=== PATIENT | female | born 1965 | race Caucasian/White ===

== ENCOUNTER 2017-07-28 18:14 | Emergency (ER) | payer BC ==
[2017-07-28 18:34] VITALS: BP 162/63
[2017-07-28] MEDS ORDERED: Sodium Chloride 0.9% 10 ML Syringe FLUSH PRN (19:09)
[2017-07-28] MEDS ORDERED: HYDROmorphone 0.5 MG/0.5 ML Syringe IVPUSH ONE ×2 (19:11→20:34)
[2017-07-28] MEDS ORDERED: diphenhydrAMINE 50 MG/ML SDV IVPUSH ONE (19:11)
[2017-07-28] MEDS ORDERED: Prochlorperazine 10 MG/2 ML SDV IVPUSH ONE (19:11)
[2017-07-28] MEDS ORDERED: Ondansetron 4 MG/2 ML SDV IVPUSH ONE (22:06)
--- NOTE | 2017-07-28 22:41 | EDM.PDOC ---
ED HPI GENERAL MEDICAL PROBLEM - General Chief Complaint: Headache Stated Complaint: PRESURE IN HEAD Time Seen by Provider: 07/28/17 19:00 Source of Information: Reports: Patient, Family History Limitations: Reports: No Limitations - History of Present Illness INITIAL COMMENTS - FREE TEXT/NARRATIVE: The patent presents with a headache. The patient has a generalized headache that started today. It is described as pressure. She has nausea and vomiting with it. She has no numbness or weakness. She has a history of headaches but not for about 10 years. She has a low grade temp of 100.6. She had no temp here. She has no chest pain or shortness of breath. She has no cough, congestion or runny nose. She went to the walk in clinic and she was given an injection but that did not help. Onset: Gradual Duration: Day(s): (1) Location: Reports: Head Quality: Reports: Pressure Improves with: Reports: None Worsens with: Reports: None Associated Symptoms: Reports: Headaches, Nausea/Vomiting Headache Pain Score (Numeric/FACES): 10 - Related Data Allergies Allergy/AdvReac Type Severity Reaction Status Date / Time tetracycline Allergy Dizziness Verified 07/28/17 18:38 Home Meds: Home Meds Acetaminophen/Diphenhydramine [Tylenol Pm Ex-Strength Caplet] 2 tab PO BEDTIME 07/28/17 [History] Aspirin [Ecotrin] 81 mg PO DAILY 07/28/17 [History] Calcium Carbonate/Vitamin D3 [Sm Calcium 600-Vit D3 400 Tab] 1 tab PO DAILY 02/08 [History] Cholecalciferol (Vitamin D3) [Vitamin D3] 1 tab PO DAILY 07/28/17 [History] Furosemide 20 mg PO DAILY 07/28/17 [History] Levothyroxine 75 mcg PO ACBREAKFAST 07/28/17 [History] Levothyroxine 200 mcg PO ACBREAKFAST 07/28/17 [History] Meclizine [Antivert] 25 mg PO Q4H PRN 07/28/17 [History] Metoprolol Succinate 50 mg PO DAILY 07/28/17 [History] Multivitamin [Multivitamins] 1 tab PO DAILY 07/28/17 [History] Pantoprazole [ProTONIX] 40 mg PO DAILY 07/28/17 [History] Past Medical History Cardiovascular History: Reports: Heart Murmur, Hypertension Respiratory History: Reports: Sleep Apnea Other Respiratory History: has c pap at h ome but has not been wearing it for about 6 months Gastrointestinal History: Reports: GERD Musculoskeletal History: Reports: Other (See Below) Other Musculoskeletal History: left ACL and MCL; right knee ACL Neurological History: Reports: Vertigo Endocrine/Metabolic History: Reports: Hypothyroidism - Past Surgical History GI Surgical History: Reports: Colonoscopy Musculoskeletal Surgical History: Reports: Carpal Tunnel Social & Family History - Tobacco Use Smoking Status *Q: Never Smoker - Caffeine Use Caffeine Use: Reports: Coffee - Recreational Drug Use Recreational Drug Use: No ED ROS GENERAL - Review of Systems Review Of Systems: See Below Constitutional: Reports: No Symptoms HEENT: Reports: No Symptoms Respiratory: Reports: No Symptoms Cardiovascular: Reports: No Symptoms Endocrine: Reports: No Symptoms GI/Abdominal: Reports: Nausea, Vomiting. Denies: Abdominal Pain : Reports: No Symptoms Musculoskeletal: Reports: No Symptoms Skin: Reports: No Symptoms Neurological: Reports: Headache - Physical Exam Exam: See Below Exam Limited By: No Limitations General Appearance: Alert, No Apparent Distress Ears: Normal External Exam Nose: Normal Inspection Head Exam: Atraumatic, Normocephalic Neck: Normal Inspection Respiratory/Chest: No Respiratory Distress, Lungs Clear, Normal Breath Sounds Cardiovascular: Regular Rate, Rhythm, No Edema, No Murmur GI/Abdominal: Soft, Non-Tender, No Organomegaly, No Mass Neuro Exam (Abbreviated): Alert, Oriented, No Motor/Sensory Deficits Course - Vital Signs Last Recorded V/S: Last Vital Signs Temp 99.3 F 07/28/17 18:31 Pulse 114 H 07/28/17 18:31 Resp 22 H 07/28/17 18:31 BP 162/63 H 07/28/17 18:31 Pulse Ox 85 L 07/28/17 18:31 - Orders/Labs/Meds Orders: Active Orders 24 hr Category Date Time Status Cardiac Monitoring [RC] . DIRECTED Care 07/28/17 19:09 Active Peripheral IV Care [RC] . DIRECTED Care 07/28/17 19:10 Active Chest 1V Frontal [CR] Stat Exams 07/28/17 19:10 Taken Head wo Cont [CT] Stat Exams 07/28/17 19:10 Taken Sodium Chloride 0.9% [Saline Flush] Med 07/28/17 19:09 Active 10 ml FLUSH ASDIRECTED PRN Peripheral IV Insertion Adult [OM.PC] Stat Oth 07/28/17 19:09 Ordered Medication Orders Sodium Chloride (Saline Flush) 10 ml FLUSH ASDIRECTED PRN PRN Reason: Keep Vein Open Last Admin: 07/28/17 19:34 Dose: 10 ml Labs: Laboratory Tests 07/28/17 07/28/17 07/28/17 Range/Units 19:57 19:57 19:57 WBC 8.72 (3.98-10.04) K/mm3 RBC 4.15 (3.98-5.22) M/mm3 Hgb 11.6 (11.2-15.7) gm/L Hct 36.0 (34.1-44.9) % MCV 86.7 (79.4-94.8) fl MCH 28.0 (25.6-32.2) pg MCHC 32.2 (32.2-35.5) g/dl RDW Std Deviation 46.0 (36.4-46.3) fL Plt Count 268 (182-369) K/mm3 MPV 9.1 L (9.4-12.3) fl Neut % (Auto) 53.9 (34.0-71.1) % Lymph % (Auto) 36.9 (19.3-51.7) % Brantley % (Auto) 8.6 (4.7-12.5) % Eos % (Auto) 0.3 L (0.7-5.8) Baso % (Auto) 0.2 (0.1-1.2) % Neut # (Auto) 4.69 (1.56-6.13) K/mm3 Lymph # (Auto) 3.22 (1.18-3.74) K/mm3 Brantley # (Auto) 0.75 H (0.24-0.36) K/mm3 Eos # (Auto) 0.03 L (0.04-0.36) K/mm3 Baso # (Auto) 0.02 (0.01-0.08) K/mm3 Sodium 139 (136-145) mEq/L Potassium 4.0 (3.5-5.1) mEq/L Chloride 102 (98-107) mEq/L Carbon Dioxide 28 (21-32) mEq/L Anion Gap 13.0 (5-15) BUN 18 (7-18) mg/dL Creatinine 1.0 (0.55-1.02) mg/dL Est Cr Clr Drug Dosing 57.87 mL/min Estimated GFR (MDRD) 58 (>60) mL/min BUN/Creatinine Ratio 18.0 (14-18) Glucose 108 H (74-106) mg/dL Calcium 9.3 (8.5-10.1) mg/dL Total Bilirubin 0.3 (0.2-1.0) mg/dL AST 17 (15-37) U/L ALT 20 (14-59) U/L Alkaline Phosphatase 70 (46-116) U/L C-Reactive Protein < 0.2 (<1.0) mg/dL Total Protein 7.4 (6.4-8.2) g/dl Albumin 3.7 (3.4-5.0) g/dl Globulin 3.7 gm/dL Albumin/Globulin Ratio 1.0 (1-2) TSH 3rd Generation 0.065 L (0.358-3.74) uIU/mL Meds: Medications Generic Name Dose Route Start Last Admin Trade Name Freq PRN Reason Stop Dose Admin Sodium Chloride 10 ml 07/28/17 19:09 07/28/17 19:34 Saline Flush FLUSH 10 ml ASDIRECTED PRN Administration Keep Vein Open Discontinued Medications Generic Name Dose Route Start Last Admin Trade Name Freq PRN Reason Stop Dose Admin Diphenhydramine HCl 50 mg 07/28/17 19:11 07/28/17 19:34 Benadryl IVPUSH 07/28/17 19:12 50 mg ONETIME ONE Administration Hydromorphone HCl 0.5 mg 07/28/17 19:11 07/28/17 19:32 Dilaudid IVPUSH 07/28/17 19:12 0.5 mg ONETIME ONE Administration Hydromorphone HCl 0.5 mg 07/28/17 20:34 07/28/17 20:46 Dilaudid IVPUSH 07/28/17 20:35 0.5 mg ONETIME ONE Administration Ondansetron HCl 4 mg 07/28/17 22:06 07/28/17 22:20 Zofran IVPUSH 07/28/17 22:07 4 mg ONETIME ONE Administration Prochlorperazine Edisylate 10 mg 07/28/17 19:11 07/28/17 19:33 Compazine IVPUSH 07/28/17 19:12 10 mg ONETIME ONE Administration - Re-Assessments/Exams Free Text/Narrative Re-Assessment/Exam: 07/28/17 22:43 I ordered an IV saline lock, compazine 10mg IV, benadryl 50mg IV and dilaudid. The CT of her head shows no evidence for acute transcortical infarct, acute hemorrhage or mass effect. Bilateral exophthalmos accompanied by enlargement of the extraocular muscles. Correlate for thyroid opthalmopathy. The patient does have hypothroidism after her thyroid was removed. She was on 300mcg and now 275mcg. Her TSH was 07/28/17 22:46 Her CBC and CMP look good. Her CRP was negative. Her TSH was low at 0.065. She is scheduled to see an safety consultant toward the end of July. I will reduce her thyroxine to 200mcg. Departure - Departure Time of Disposition: 22:50 Disposition: Home, Self-Care 01 Condition: Good Clinical Impression: Hyperthyroidism, Exophthalmos Headache Qualifiers: Headache type: unspecified Headache chronicity pattern: acute headache Intractability: not intractable Qualified Code(s): R51 - Headache - Discharge Information Referrals: Kaveh Aquino MD [Primary Care Provider] - 3 Days Forms: ED Department Discharge Additional Instructions: Reduce your levothyroxine to 200mcg daily. See Dr Doss in 2 to 3 days. Please return if you are worse. - My Orders Last 24 Hours: My Active Orders 07/28/17 19:09 Cardiac Monitoring [RC] . DIRECTED Sodium Chloride 0.9% [Saline Flush] 10 ml FLUSH ASDIRECTED PRN Peripheral IV Insertion Adult [OM.PC] Stat 07/28/17 19:10 Peripheral IV Care [RC] . DIRECTED Chest 1V Frontal [CR] Stat Head wo Cont [CT] Stat - Assessment/Plan Last 24 Hours: My Active Orders 07/28/17 19:09 Cardiac Monitoring [RC] . DIRECTED Sodium Chloride 0.9% [Saline Flush] 10 ml FLUSH ASDIRECTED PRN Peripheral IV Insertion Adult [OM.PC] Stat 07/28/17 19:10 Peripheral IV Care [RC] . DIRECTED Chest 1V Frontal [CR] Stat Head wo Cont [CT] Stat
--- NOTE | 2017-07-29 18:00 | CR ---
Chest: Portable view of the chest was obtained. Comparison: No prior chest x-ray. Heart size is slightly prominent but accentuated from portable technique. Upper mediastinum is normal. Lungs are clear. Mild scoliosis is noted within the spine. Mild scattered degenerative change is seen within the spine. Impression: 1. Incidental findings. Nothing acute is appreciated on portable chest x-ray. Diagnostic code #2
--- NOTE | 2017-07-29 18:00 | CT ---
Head CT Technique: Multiple axial sections through the brain were obtained. Intravenous contrast was not utilized. Comparison: No previous intracranial imaging. Findings: Both globes appear to have exophthalmos with mild thickening of portions of the rectus muscles. Please correlate if patient has any symptoms of Graves' disease. Ventricles along with basal cisterns and sulci over the convexities are mildly prominent. Very minimal diminished density is noted within portions of the periventricular white matter compatible with small vessel ischemic demyelination change. Old lacunar infarct appears to be present within the left basal ganglia. No other abnormal parenchymal densities are seen. No evidence of intracranial hemorrhage. No midline shift or mass effect is seen. Bone window settings were reviewed which show the visualized sinuses to appear clear. No acute calvarial abnormality is seen. Impression: 1. Exophthalmos with slight thickening of the rectus muscle suspicious for Graves' disease. Please correlate. 2. Minimal senescent change as described above. 3. Nothing acute is otherwise seen on noncontrast head CT study. Diagnostic code #3 Agree with preliminary report issued by [facility] ([facility] preliminary report dictated on 07/28/17, 9:50 PM Central Time)
== END 2017-07-28 23:05 | disposition home or self-care (01) ==
LOC: EDBD 18:14 → MERGE 18:14 → JD.ED 18:14
DX: E05.90 Thyrotoxicosis, unspecified without thyrotoxic crisis or storm (principal); H05.20 Unspecified exophthalmos; R51 Headache; I10 Essential (primary) hypertension; K21.9 Gastro-esophageal reflux disease without esophagitis; Z88.1 Allergy status to other antibiotic agents; Z79.82 Long term (current) use of aspirin; Z79.899 Other long term (current) drug therapy
CPT/HCPCS: 36415; 70450; 71010; 80053; 84443; 85025; 86140; 96374; 96375; 96376; 99285; J0780; J1170; J1200; J2405; J7050; 99283